=== PATIENT | female | born 1955 | race Caucasian/White ===

== ENCOUNTER 2020-07-09 18:50 | Observation (INO) | payer OTHER, SELFPAY ==
[2020-07-09] VITALS (9 sets, daily range): BP systolic 146–208; BP diastolic 77–104; PULSE 67–78; RESP 11–23; TEMP 37; O2SAT 95–99
--- NOTE | 2020-07-09 20:52 | XRR_ITS ---
PROCEDURE INFORMATION: Exam: XR Chest, 1 View Exam date and time: 07/09/2020 9:08 PM Age: 65 years old Clinical indication: Chest pain; Type not specified; Prior surgery; Surgery type: Gb TECHNIQUE: Imaging protocol: XR of the chest Views: 1 view. COMPARISON: No relevant prior studies available. FINDINGS: Lungs: Unremarkable. No consolidation. Pleural space: Unremarkable. No pleural effusion. No pneumothorax. Heart/Mediastinum: Unremarkable. No cardiomegaly. Bones/joints: Unremarkable. XR/XR chest 1V portable [id number] IMPRESSION: No acute findings.
--- NOTE | 2020-07-09 20:52 | ECG_ITS ---
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 Measurements Intervals [place] Rate: 83 P: 34 [place]: 181 QRS: -4 QRSD: 82 T: 75 QT: 364 QTc: 428 Interpretive Statements SINUS RHYTHM WITH OCCASIONAL VENTRICULAR PREMATURE COMPLEXES POSSIBLE ANTERIOR MYOCARDIAL INFARCTION [30 ms Q WAVE IN V3/V4, OR R < 0.2 mV IN V4], PROBABLY OLD INFERIOR MYOCARDIAL INFARCTION [40+ ms Q WAVE AND/OR ST/T ABNORMALITY IN II/aVF], PROBABLY OLD No previous ECG available for comparison Electronically Signed On 07-10-2020 16:38:32 UTILIZATION MANAGEMENT NURSE by Karina Quinn M.D. [id number]
[2020-07-09 20:59] LABS: Basophils # 0.1 10^3/uL (0.0-0.1); Basophils % 0.6 %; Eosinophils # 0.2 10^3/uL (0.0-0.8); Eosinophils % 2.1 %; Hematocrit 43.5 % (37.0-47.0); Hemoglobin 14.4 g/dL (11.5-15.3); Lymphocytes # 3.4 10^3/uL (0.8-4.8); Lymphocytes % 31.8 %; Mean Corpuscular HGB Conc 33.1 g/dL (30.0-36.0); Mean Corpuscular Hemoglobin 30.1 pg (28.0-34.0); Mean Platelet Volume 10.6 fL (7.4-10.4); Monocytes # 0.5 10^3/uL (0.2-0.9); Neutrophils # 6.33 10^3/uL (1.8-7.7); Neutrophils % 60.2 %; Nucleated Red Blood Cells % 0 %; Platelet Count 341 10^3/cmm (130-400); Red Blood Count 4.78 10^6/uL (4.1-5.3); Red Cell Distribution Width 12.1 % (12.1-15.1); White Blood Count 10.5 10^3/uL (4.0-10.0)
[2020-07-09 21:32] LABS: Alanine Aminotransferase 19 U/L (0-33); Albumin Level 4.4 g/dL (3.5-5.2); Alkaline Phosphatase 95 IU/L (35-105); Anion Gap 16.4 (5-19); Aspartate Amino Transferase 15 U/L (0-32); Blood Urea Nitrogen 18 mg/dL (8-23); Calcium 9.9 mg/dL (8.5-10.5); Carbon Dioxide 26 mmol/L (22-29); Chloride 99 mmol/L (98-107); Globulin 2.3 g/dL (1.3-4.6); Glomerular Filtration Rate 50.2 mL/min (90-130); Glucose 241 mg/dL (65-115); Lipase 29 U/L (13-60); Magnesium 2.2 mg/dL (1.7-2.3); Osmolality Calculated 294 mOsm/kg (285-295); Potassium 4.4 mmol/L (3.5-5.1); Sodium 137 mmol/L (136-145); Total Bilirubin 0.3 mg/dL (0.15-1.2); Total Protein 6.7 g/dL (6.6-8.7)
[2020-07-09 21:34] LABS: Troponin(5th) Baseline 20 ng/L (0-10)
[2020-07-09] MEDS: aspirin 325 mg Tablet PO (21:34)
[2020-07-09] MEDS: nitroglycerin 0.4 mg sublingual Tablet SUBLINGUAL (22:07)
--- NOTE | 2020-07-09 22:19 | ED_ITS ---
HPI - Chest Pain General: Chief Complaint: Chest Pain Stated Complaint: chest pain Time Seen by Provider: 07/09/20 21:10 Source: patient Mode of arrival: ambulatory Limitations: no limitations History of Present Illness: HPI narrative: Arpita is a very nice 65-year-old female who comes in complaining of chest pain. The pain is described more like a pressure in the center of her chest that radiates down her left arm. She has associated shortness of breath and nausea with this but denies diaphoresis, syncope or other complaint. She does have worsening with exertion but denies any other exacerbating or alleviating factors. Patient has a history of stroke but had not seen a doctor in over 8 years. The symptoms of chest discomfort have been going on intermittently since September but recently have become much worse. She establish with a new doctor recently and was diagnosed with hypertension, diabetes and hyperlipidemia. She also has a family history of heart disease. Patient was set up for an outpatient stress test on Thursday but she felt because of the increasing severity and frequency of her symptoms she should be checked out before then. Patient also complains of frequent palpitations described as a rapid pounding in her chest as well as an irregular heartbeat. Patient denies any syncope or near syncopal type symptoms. Associated symptoms: Reports dyspnea and palpitations; Deny abdominal pain, diaphoresis, fever(s), nausea, syncope or vomiting Review of Systems Const: Denies: fever(s), chills, body aches, fatigue, malaise or diaphoresis Eyes: Denies: change in vision, blurry vision, photophobia, eye discomfort, eye discharge, eye redness or yellow eyes ENMT: Denies: throat pain, odynophagia, hoarseness, swelling of lips/tongue, ear or mastoid pain, ear discharge, change in hearing or nasal discharge Card: Reports: chest pain, palpitations and irregular heart rhythm; Denies: edema, lightheadedness, syncope, pre-syncope, dyspnea on exertion or orthopnea Resp: Reports: dyspnea; Denies: productive cough, non-productive cough, wheezing, hemoptysis or chest congestion GI: Denies: abdominal pain, nausea, vomiting, hematemesis, coffee ground emesis, heartburn, diarrhea, constipation, GI cramping, hematochezia or melena : Denies: flank pain, dysuria, urinary frequency, urinary urgency or hematuria Musc: Denies: neck pain, back pain, extremity pain, extremity swelling, joint pain, joint swelling, joint redness, joint warmth or joint stiffness Skin/Breast: Denies: rash, pruritus, erythema, skin pain or skin tenderness Neuro: Denies: headache(s), numbness in extremities, weakness in extremities, sensory changes, lack of coordination, difficulty walking, dizziness, vertigo, confusion, Slurred speech present or seizure-like activity Alvaro/Lymph: Denies: easy bruising, easy bleeding, petechiae, purpura or enlarged lymph nodes All/Imm: Denies: urticaria, throat swelling, tongue swelling, facial swelling or acute wheezing PFSH ED PFSH: Medical History (Updated 07/09/20 @ 22:39 by Anali Khanna) CVA (cerebral vascular accident) DM type 2 (diabetes mellitus, type 2) Hyperlipidemia Hypertension Family History (Updated 07/09/20 @ 22:23 by Anali Khanna) Other CAD (coronary artery disease) Stroke Social History (Updated 07/09/20 @ 22:23 by Anali Khanna) Smoking and tobacco status: never smoked Alcohol intake: never Substance/Drug Use: never Physical Exam Const: COMMON NORMALS: no acute distress, patient oriented x3, no limitations and alert GENERAL APPEARANCE: cooperative HENMT: COMMON NORMALS: normocephalic, atraumatic, external ears normal, EAC's normal and Normal external nose present HEAD & SCALP: normal to inspection, normocephalic and atraumatic FACE & SINUS: normal facial exam and face symmetric NOSE: Normal external nose present and Normal nares present EXTERNAL EAR: Yes external ears normal EXTERNAL AUDITORY CANAL: EAC's normal MOUTH: Normal oral and palatal mucosa present, lip normal and tongue normal Eye: COMMON NORMALS: Equal, round and reactive pupils present and conjunctivae normal GENERAL EYE: appearance normal, both eyes and all related structures ALIGNMENT: Yes alignment normal PERIORBITAL: periorbital findings normal EYELID: eyelids normal CONJUNCTIVA: Yes conjunctivae normal SCLERA: sclerae normal PUPIL: Yes Equal, round and reactive pupils present Neck/C-Spine: COMMON NORMALS: full ROM, no lymphadenopathy, supple, no meningeal signs and no JVD GENERAL: Yes normal visual inspection and Yes trachea midline Chest: COMMONS NORMALS: normal inspection of the chest and normal palpation of entire chest wall Resp: COMMON NORMALS: normal respiratory effort, No retractions, No use of accessory muscles and clear to auscultation bilaterally EFFORT & INSPECTION: Yes able to speak in complete sentences and Yes symmetric chest movement AUSCULTATION: clear to auscultation bilaterally, no crackles, no rales, no rhonchi and no wheezes Cardio: COMMON NORMALS: no JVD, regular rate, regular rhythm, S1 normal heart sound present and S2 normal heart sound present RATE: regular rate RHYTHM: regular rhythm HEART SOUNDS: S1 normal heart sound present, S2 normal heart sound present, no click, no gallops, no murmurs and no rubs GI: COMMON NORMALS: Soft to palpation and No hepatosplenomegaly present PALPATION: Yes Soft to palpation, No Tenderness to palpation present (GI), No Guarding due to palpation present (GI), No Rigid due to palpation, Yes No hepatosplenomegaly present, No Hernia present, No Palpable mass present and No Pulsatile mass present : COMMON NORMALS: Yes no CVA tenderness BLADDER/KIDNEY EXAM: Yes no CVA tenderness EXTERNAL FEMALE EXAM: No Hernia present Back/Pelvis: COMMON NORMALS: no CVA tenderness, thoracic and lumbar spine normal to inspection, no thoracic nor lumbar tenderness and thoraco-lumbar ROM normal Extremity: COMMON NORMALS: normal to inspection, full ROM, capillary refill normal, no joint enlargement, no clubbing, cyanosis or edema and no calf tenderness Neuro: COMMON NORMALS: patient oriented x3, CN's II-XII intact bilaterally, moves all extremities, no focal motor deficits and no sensory deficits noted SENSORIUM/ORIENTATION: Yes alert MENINGEAL SIGNS: Yes no meningeal signs SPEECH: speech normal Psych: COMMON NORMALS: mental status grossly normal, Normal thought process present, cooperative, normal affect, speech normal and activity/motor behavior normal SPEECH: Yes normal speech THOUGHT PROCESS: Normal thought process present Skin: COMMON NORMALS: no rashes or lesions noted, turgor normal, no jaundice, no petechiae and no mottling GENERAL SKIN EXAM: no rashes or lesions noted and turgor normal Course Vital Signs: Vital signs: Vital Signs Temperature 98.6 F 07/09/20 18:57 Pulse Rate 72 07/09/20 22:32 Respiratory Rate 15 07/09/20 22:32 Blood Pressure 162/81 07/09/20 22:32 Pulse Oximetry 95 07/09/20 22:32 MDM - Chest Pain MDM Narrative: Medical decision making narrative: Mrs. Marion is a very nice 65-year-old female who comes in with high blood pressure and the complaint of chest pressure. Her symptoms have been going on for the past several months but worsening in severity and frequency. Differentials considerable including acute coronary syndrome, aortic dissection, pulmonary embolism, hypertensive urgency among many others. Patient has no tachycardia, hypoxia, leg pain or anything to suggest a PE. She is not scriber ripping or tearing sensation or migratory pain and with the time span of her symptoms I doubt dissection or PE. I am concerned about acute coronary syndrome. Patient's EKG is abnormal as she has a first abnormal troponin. Patient's heart score is 6. Because of all these findings and her heart score I have endorsed the case to Dr. Peña agrees to admit for further evaluation and care. Lab Data: Attestation: I reviewed the patient's lab results. Labs: Lab Results 07/09/20 07/09/20 07/09/20 Range/Units 20:44 20:44 20:44 WBC 10.5 H (4.0-10.0) 10^3/ uL RBC 4.78 (4.1-5.3) 10^6/u L Hgb 14.4 (11.5-15.3) g/dL Hct 43.5 (37.0-47.0) % MCV 91.0 (81-99) fL MCH 30.1 (28.0-34.0) pg MCHC 33.1 (30.0-36.0) g/dL RDW 12.1 (12.1-15.1) % Plt Count 341 (130-400) 10^3/c mm MPV 10.6 H (7.4-10.4) fL Neut % (Auto) 60.2 % Lymph % (Auto) 31.8 % [place] % (Auto) 5.0 % Eos % (Auto) 2.1 % Baso % (Auto) 0.6 % Neut # (Auto) 6.33 (1.8-7.7) 10^3/u L Lymph # (Auto) 3.4 (0.8-4.8) 10^3/u L [place] # (Auto) 0.5 (0.2-0.9) 10^3/u L Eos # (Auto) 0.2 (0.0-0.8) 10^3/u L Baso # (Auto) 0.1 (0.0-0.1) 10^3/u L Nucleated RBC % (a uto) 0 % Nucleated RBCs # 0.0 /100WBC Sodium 137 (136-145) mmol/L Potassium 4.4 (3.5-5.1) mmol/L Chloride 99 (98-107) mmol/L Carbon Dioxide 26 (22-29) mmol/L Anion Gap 16.4 (5-19) BUN 18 (8-23) mg/dL Creatinine 1.1 H (0.5-0.9) mg/dL GFR Calculation 50.2 L (90-130) mL/min Glucose 241 H (65-115) mg/dL Calculated Osmolal ity 294 (285-295) mOsm/k g Calcium 9.9 (8.5-10.5) mg/dL Magnesium 2.2 (1.7-2.3) mg/dL Total Bilirubin 0.3 (0.15-1.2) mg/dL AST 15 (0-32) U/L ALT 19 (0-33) U/L Alkaline Phosphata se 95 (35-105) IU/L Troponin T Baselin e 20 H (0-10) ng/L Total Protein 6.7 (6.6-8.7) g/dL Albumin 4.4 (3.5-5.2) g/dL Globulin 2.3 (1.3-4.6) g/dL Lipase 29 (13-60) U/L Imaging Data^: CXR: Attestation: I personally reviewed and interpreted this imaging study as follows: My impression: No acute cardiopulmonary findings. EKG Data^: EKG 1: Attestation: I personally reviewed and interpreted this EKG as follows: EKG interpretation date: 07/09/20 EKG interpretation time: 18:50 Interpretation: Normal sinus rhythm at 83 beats a minute, no blocks, normal intervals, possible anterior Q waves V1 through V4, Q waves inferiorly in III, aVF, nonspecific ST and T wave changes. No old for comparison EKG 2: Attestation: I personally reviewed and interpreted this EKG as follows: EKG interpretation date: 07/09/20 EKG interpretation time: 22:58 Interpretation: Normal sinus rhythm at 69 beats a minute, no blocks, normal intervals, LVH, Q waves anteriorly in V1 through V4, nonspecific ST and T wave changes. Discharge Plan Discharge Patient Disposition: Placed in Observation Clinical Impression: Chest pain Qualifiers: Chest pain type: chest pain due to myocardial ischemia Ischemic chest pain type: unstable angina pectoris Qualified Code(s): I20.0 - Unstable angina Coding Level of Care Code ED Plastics Fabrication Supervisor for Chg Fwd Exam Comprehensive
--- NOTE | 2020-07-09 22:52 | ECG_ITS ---
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 Measurements Intervals [place] Rate: 69 P: 26 OR: 177 QRS: -13 QRSD: 89 T: 70 QT: 411 QTc: 440 Interpretive Statements SINUS RHYTHM WITH OCCASIONAL VENTRICULAR PREMATURE COMPLEXES MODERATE VOLTAGE CRITERIA FOR LVH, CONSIDER NORMAL VARIANT [MEETS CRITERIA IN ONE OF: R(aVL), S(V1), R(V5), R(V5/V6)+S(V1)] POSSIBLE ANTERIOR MYOCARDIAL INFARCTION , OF INDETERMINATE AGE [30 ms Q WAVE IN V3/V4, OR R < 0.2 mV IN V4] Compared to ECG 07/09/2020 18:51:27 No significant changes Electronically Signed On 07-10-2020 16:38:52 ELECTRICAL APPLIANCE SERVICER by Karina Quinn M.D. [id number]
[2020-07-09 23:12] LABS: Troponin 5 2HR 20.43 ng/L (0-10); Troponin 5 2HR Delta 0.43 ABS# (0-10)
[2020-07-10] VITALS (12 sets, daily range): BP systolic 117–185; BP diastolic 62–93; PULSE 61–74; RESP 14–18; TEMP 36.3–36.8; O2SAT 93–98; BMI 30.9
--- NOTE | 2020-07-10 00:59 | USCV_ITS ---
Arpita Marion Age: 65 Gender: F : 1955 Exam Date: 07/10/2020 09:43 Ordering Phys: Jonh Peña MD Technologist: Kassidy Siddiqi Exam Location: [facility] [place] Indication: CHEST PAIN BP: 126 / 73 HR: 70 Rhythm: Sinus Technical Quality: Fair MEASUREMENTS (Male / Female) Normal Values 2D ECHO LV Diastolic Diameter PLAX 3.9 cm 4.2 - 5.9 / 3.9 - 5.3 cm LV Systolic Diameter PLAX 2.5 cm LV Chamber Size 3.6 cm IVS Diastolic Thickness 1.3 cm 0.6 - 1.0 / 0.6 - 0.9 cm IVS Systolic Thickness 1.5 cm LVPW Diastolic Thickness 1.7 cm 0.6 - 1.0 / 0.6 - 0.9 cm LVPW Systolic Thickness 2.1 cm RV Chamber Size 3.0 cm LVOT Diameter 2.0 cm LV Ejection Fraction 2D Teich 65.3 % LV Ejection Fraction MOD 2C 60.0 % LV Ejection Fraction 2C AL 61.1 % LA Diameter 3.5 cm LA Width 3.5 cm LA Height 3.5 cm RA Width 2.4 cm RA Height 3.1 cm Aorta at Sinotubular Diameter 2.1 cm M-MODE LV Diastolic Diameter MM 4.8 cm 4.2 - 5.9 / 3.9 - 5.3 cm LV Systolic Diameter MM 2.9 cm LV Ejection Fraction MM Teich 70.9 % IVS Diastolic Thickness MM 1.2 cm 0.6 - 1.0 / 0.6 - 0.9 cm IVS Systolic Thickness MM 1.3 cm LVPW Diastolic Thickness MM 1.0 cm 0.6 - 1.0 / 0.6 - 0.9 cm LVPW Systolic Thickness MM 1.4 cm Aortic Annulus Diameter 2.8 cm LA Ao Ratio MM 1.3 MV E Point Septal Separation 1.2 cm DOPPLER AV Peak Velocity 134.0 cm/s LVOT Peak Velocity 89.0 cm/s AV Area Cont Eq vti 2.2 cm squared AV Area Cont Eq pk 2.1 cm squared MV Area PHT 6.7 cm squared Mitral E to A Ratio 0.7 MV E' Velocity 40.0 cm/s Mitral E to MV E' Ratio 11.2 Mitral E to LV E' Lateral Ratio 11.7 Mitral E to LV E' Septal Ratio 10.8 TR Peak Velocity 144.0 cm/s TR Peak Gradient 8.3 mmHg TV Peak E Velocity 64.0 cm/s Right Atrial Pressure 3.0 mmHg Pulmonary Artery Systolic Pressu 11.3 mmHg PV Peak Velocity 96.7 cm/s RV Acceleration Time 0.2 s RV Ejection Time 0.4 s RV AcT/ET 0.4 FINDINGS Left Ventricle Normal left ventricular size, systolic function and wall thickness, with no regional wall motion abnormalities. Left ventricular ejection fraction is estimated at 65-70 %. Indeterminate diastolic function. Right Ventricle Normal right ventricular size and systolic function. Right ventricular systolic pressure 11.3 mmHg. Right Atrium Normal right atrial size. Left Atrium Left atrium not well visualized. Probably normal left atrial size Mitral Valve Thickened mitral valve. No mitral valve stenosis. No mitral valve regurgitation. Aortic Valve Probably tricuspid aortic valve. No aortic valve stenosis. No aortic valve regurgitation. Tricuspid Valve Structurally normal tricuspid valve. Pulmonic Valve Pulmonic valve not well visualized. Pericardium No pericardial effusion. Aorta Normal-sized aortic root. CONCLUSIONS 1. This is a technically difficult study. 2. Normal left ventricular size, systolic function and wall thickness, with no regional wall motion abnormalities. Left ventricular ejection fraction is estimated at 65-70 %. Indeterminate diastolic function. 3. Normal pulmonary artery pressure. 4. No significant valvular abnormality. 5. No prior similar studies to compare. Karina Quinn MD (Electronically Signed) Final Date: 10 July 2020 12:31 S
--- NOTE | 2020-07-10 01:03 | NMCV_ITS ---
NM jesus perf SPECT r/s* [id number] Arpita Marion Age: 65 Gender: F : 1955 Exam Date: 07/10/2020 06:49 Ordering Phys: Jonh Peña MD Technologist: MARLA Riddle Exam Location: [facility] Indications: CHEST PAIN STRESS TEST Please see separate stress test report in [facility] for full findings IMAGE PROTOCOL Rest/Stress 1 Lexiscan Day Radiopharmaceutical Dose (mCi) Administration Site Administered by Rest: Tc-99m 10.9 IV MARLA Siddiqui Sestamibi Stress:Tc-99m 32.9 IV MARLA Siddiqui Sestamibi Rest: 10-Jul-2020 60 Discovery 630 Stress: 10-Jul-2020 30 Discovery 630 0.4mg Lexiscan. Images obtained in supine and prone position. SPECT RESULTS Technical Quality: Excellent Raw Data Analysis: Normal Image Corrections: No attenuation or motion correction applied Summed Stress Score: 3 Summed Rest Score: 4 Summed Difference Score: 0 PERFUSION FINDINGS There is a small in size, fixed perfusion defect of the apical wall. This likely represents prior infarct or artifact. FUNCTIONAL RESULTS (calculated via Gated SPECT) Stress Image LV EF (%): 76 Stress EDV (mL):76 TID: 1.25 Stress ESV (mL):18 FUNCTIONAL FINDINGS: LV systolic function is normal with EF of 76%. Elevated transient ischemic dilation ratio 1.25. IMPRESSIONS 1. Small, fixed perfusion defect is noted in the apical wall. This likely represents prior infarct or artifact. 2. Elevated transient ischemic dilation ratio of 1.25. This could represent subendocardial ischemia/multivessel disease. Clinical correlation is needed. Jim Ruiz MD (Electronically Signed) Final Date: 10 July 2020 10:26 S
--- NOTE | 2020-07-10 01:03 | ECG_ITS ---
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 Interpretive Statements NAME OF STUDY: LEXISCAN SESTAMIBI STRESS TEST INDICATION: Chest Pain PROCEDURE: At the baseline, the blood pressure was 177/87 mmHg with a heart rate of 70 bpm. The electrocardiogram showed normal sinus rhythm with frequent PVCs, normal axis. Possible old anteroseptal infarct. Nonspecific ST-T wave changes. The Lexiscan was infused over a period of 20 seconds. A total of 0.4 milligrams of Lexiscan was infused. The stress phase was continued for a total of 5 minutes. Heart rate at the end of the stress phase was 73 bpm with a blood pressure of 145/77 mm Hg. The EKG at the peak infusion revealed sinus rhythm with no significant ST-T wave changes. Sestamibi was injected 20 seconds after the Lexiscan infusion. Blood pressure at the end of the recovery phase was 146/87 mmHg with a heart rate of 71 beats per minute. CONCLUSION: 1. No significant EKG changes with the LexiScan infusion. 2. No LexiScan induced chest pain or cardiac arrhythmia. 3. Normal blood pressure and heart rate response. 4. Sestamibi/sestamibi perfusion scan pending; see separate report. Electronically Signed On 07-10-2020 12:06:07 SHELLFISH SORTER by Karina Quinn M.D. [id number]
--- NOTE | 2020-07-10 01:10 | PM.HP ---
Providers/Chief Complaint Admitting Physician: Jonh Peña MD Chief Complaint: chest pain History of Present Illness Arpita Marion is a 65 year old female hypertension and diabetes, dyslipidemia,CVA (8 yrs back ) with no residual weakness, was admitted with chief complaint of, left-sided pressure-like chest pain, radiating to the left arm, started this morning, associated with, diaphoresis ,palpitation, nausea, dizziness. She is complaining of ongoing chest pain since September 2019, which has progressively worsened, but the chest pain she experienced today in the morning, was completely different from, her ongoing chest pain since September. Her chest pain and shortness of breath worsens with exertion. She has recently moved to the area, and has established a primary care physician, she has not been on any antihypertensive medications or antidiabetic medications in the past, she was managing her hypertension and diabetes conservatively. She was due to start on Metformin for her diabetes as per PCP recommendation for HbA1c of 8. She was due to get an outpatient stress test this Thursday. On review of system she denies any cough, fever, orthopnea, PND abdominal pain, vomiting, constipation, urinary complaints, sick contact. Upon arrival in the ER she was worked up for chest pain: EKG:normal sinus rhythm at 83 beats a minute, no blocks, normal intervals, possible anterior Q waves V1 through V4, Q waves inferiorly in III, aVF, nonspecific ST and T wave changes. No old for comparison. X-ray chest: No acute infiltrates, no pulmonary congestion. Pertinent labs: Baseline troponin: 20, 2 hours: 20.43, delta: 0.43, 6 hours: Awaited proBNP: Pending ER medications: Aspirin 325 mg p.o. 1 dose Review of Systems Const: Denies: fever(s), chills, body aches or change in appetite Card: Denies: edema or leg pain with exertion Resp: Denies: productive cough, wheezing or pain on inspiration GI: Denies: abdominal pain, nausea, vomiting, diarrhea or constipation : Denies: flank pain Musc: Denies: back pain or extremity pain Neuro: Denies: headache(s), difficulty walking or confusion Medications/Allergies Home Medications Medication Instructions Recorded Confirmed Last Taken Type No Known Home Medications 07/09/20 07/09/20 Unknown History Allergies Allergy/AdvReac Type Severity Reaction Status Date / Time Penicillins Allergy Unknown Verified 07/09/20 18:54 PFSH Acute PFSH: Medical History CVA (cerebral vascular accident) DM type 2 (diabetes mellitus, type 2) Hyperlipidemia Hypertension Family History Other CAD (coronary artery disease) Stroke Social History Smoking and tobacco status: never smoked Alcohol intake: never Substance/Drug Use: never Vitals/I&O/Wt Last Vital Signs Temp 98.6 F 07/09/20 18:57 Pulse 69 07/10/20 00:47 Resp 14 07/10/20 00:47 BP 182/93 07/10/20 00:47 Pulse Ox 96 07/10/20 00:47 Weight last 48 hrs Weight 76.657 kg Physical Exam Const: COMMON NORMALS: patient oriented x3 HENMT: COMMON NORMALS: normocephalic and atraumatic HEAD & SCALP: normocephalic and atraumatic EXTERNAL EAR: Yes external ears normal Eye: COMMON NORMALS: no scleral icterus GENERAL EYE: appearance normal, both eyes and all related structures Chest: COMMONS NORMALS: normal inspection of the chest and normal palpation of entire chest wall CHEST: Yes Symmetrical chest wall rise Resp: COMMON NORMALS: normal respiratory effort, No retractions, No use of accessory muscles and clear to auscultation bilaterally EFFORT & INSPECTION: Yes symmetric chest movement AUSCULTATION: clear to auscultation bilaterally Cardio: COMMON NORMALS: regular rate, regular rhythm, S1 normal heart sound present, S2 normal heart sound present, No gallops present (Cardio), No murmurs present (Cardio), No rub (Cardio) and Peripheral pulses 2+ throughout RATE: regular rate RHYTHM: regular rhythm HEART SOUNDS: S1 normal heart sound present and S2 normal heart sound present PERIPHERAL PULSES: Peripheral pulses 2+ throughout GI: COMMON NORMALS: Normal to inspection, nondistended, normoactive bowel sounds present, Soft to palpation, non-tender, No hepatosplenomegaly present and no masses AUSCULTATION: Yes normoactive bowel sounds PALPATION: Yes Soft to palpation and Yes No hepatosplenomegaly present RECTAL EXAM: deferred Extremity: COMMON NORMALS: no clubbing, cyanosis or edema and no pedal edema Neuro: COMMON NORMALS: patient oriented x3 Data : 07/10/20 02:45 07/10/20 02:45 A&P Assessment and plan (1) Chronic stable angina: Patient likely has chronic stable angina. EKG is failed to show any acute myocardial insult. Troponins are flat. N.p.o. 2D echo Lexiscan in the a.m. Aspirin 81 mg oral daily Plavix 75 mg oral daily Imdur 30 mg oral daily Lisinopril 2.5 mg oral daily Metoprolol tartrate 12.5 mg oral every 12 hours Atorvastatin 40 mg oral daily Telemetry monitoring. Possible cardiology consult Status: Acute (2) Coronary artery disease: Based on the risk factor (hypertension, diabetes, dyslipidemia, family history of CAD) EKG findings. Typical chest pain. Management as #1 Status: Acute (3) Hyperlipidemia: Atorvastatin 40 mg oral daily Status: Acute (4) DM type 2 (diabetes mellitus, type 2): LDSSI FSG HbA1c Diabetic Diet Status: Acute (5) Hypertension: Has not been on any blood pressure medications in past Amlodipine 5 mg oral daily,Lisinopril 2.5 mg oral daily, Metoprolol.T : 12.5 MG Q12 H Daily. Monitor B/P Status: Acute (6) CVA (cerebral vascular accident): Continue ASpirin and Plavix Status: Acute Additional A&P Information DVT prophylaxis: Lovenox 40 subcu daily CODE STATUS: Full code Disposition: Home Attestations Medical Necessity Statement*: Patient is to be in hospital for the management of chest pain, anticipated length of stay is greater than 2 midnights. 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
[2020-07-10] MEDS: amlodipine 5 mg Tablet PO ×2 (01:34→10:01)
--- NOTE | 2020-07-10 02:52 | ECG_ITS ---
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 Measurements Intervals [place] Rate: 69 P: 33 MI: 188 QRS: -12 QRSD: 82 T: 96 QT: 402 QTc: 432 Interpretive Statements SINUS RHYTHM MINIMAL VOLTAGE CRITERIA FOR LVH, CONSIDER NORMAL VARIANT [MEETS CRITERIA IN ONE OF: R(aVL), S(V1), R(V5), R(V5/V6)+S(V1)] POSSIBLE ANTERIOR MYOCARDIAL INFARCTION , OF INDETERMINATE AGE [30 ms Q WAVE IN V3/V4, OR R < 0.2 mV IN V4] INFERIOR MYOCARDIAL INFARCTION , PROBABLY OLD [40+ ms Q WAVE AND/OR ST/T ABNORMALITY IN II/aVF] Compared to ECG 07/09/2020 18:51:27 Ventricular premature complex(es) no longer present Myocardial infarct finding still present Electronically Signed On 07-10-2020 16:39:03 ONLINE MERCHANDISING MANAGER by Karina Quinn M.D. [email or web address] [id number] pavel
[2020-07-10 03:19] LABS: Basophils # 0.1 10^3/uL (0.0-0.1); Basophils % 0.6 %; Eosinophils # 0.3 10^3/uL (0.0-0.8); Eosinophils % 2.9 %; Hemoglobin 13.3 g/dL (11.5-15.3); Lymphocytes # 3.7 10^3/uL (0.8-4.8); Lymphocytes % 42.5 %; Mean Corpuscular HGB Conc 32.4 g/dL (30.0-36.0); Mean Corpuscular Hemoglobin 29.4 pg (28.0-34.0); Mean Corpuscular Volume 90.5 fL (81-99); Mean Platelet Volume 10.8 fL (7.4-10.4); Monocytes # 0.5 10^3/uL (0.2-0.9); Monocytes % 5.7 %; Neutrophils # 4.21 10^3/uL (1.8-7.7); Neutrophils % 48.2 %; Nucleated Red Blood Cells % 0 %; Platelet Count 317 10^3/cmm (130-400); Red Blood Count 4.53 10^6/uL (4.1-5.3); White Blood Count 8.7 10^3/uL (4.0-10.0)
[2020-07-10 03:23] LABS: Partial Thromboplastin Time 26.4 SECONDS (23.9-36.7)
[2020-07-10] MEDS: hyDRALAzine 25 mg Tablet PO (03:23)
[2020-07-10] MEDS: enoxaparin 40 mg/0.4 mL Syringe SUBCUT (03:23)
[2020-07-10 03:28] LABS: Estmated Average Glucose 209; Hemoglobin A1C 8.9 % (4.0-6.0)
[2020-07-10 03:30] LABS: Troponin 5 6HR 22.35 ng/L (0-10); Troponin 5 6HR Delta 2.35 ng/L (0-12)
[2020-07-10 03:31] LABS: Alanine Aminotransferase 17 U/L (0-33); Albumin Level 3.9 g/dL (3.5-5.2); Alkaline Phosphatase 83 IU/L (35-105); Anion Gap 16.1 (5-19); Aspartate Amino Transferase 12 U/L (0-32); Blood Urea Nitrogen 15 mg/dL (8-23); Calcium 9.5 mg/dL (8.5-10.5); Carbon Dioxide 28 mmol/L (22-29); Chloride 101 mmol/L (98-107); Globulin 2.6 g/dL (1.3-4.6); Glomerular Filtration Rate 45.4 mL/min (90-130); Glucose 216 mg/dL (65-115); Magnesium 2.1 mg/dL (1.7-2.3); Osmolality Calculated 299 mOsm/kg (285-295); Potassium 4.1 mmol/L (3.5-5.1); Sodium 141 mmol/L (136-145); Total Bilirubin 0.4 mg/dL (0.15-1.2); Total Protein 6.5 g/dL (6.6-8.7)
[2020-07-10 03:37] LABS: Phosphorus 3.9 mg/dL (2.5-4.5); Thyroid Stimulating Hormone 2.88 uIU/mL (0.27-4.20)
[2020-07-10 03:38] LABS: Chol HDL Ratio 4.71 mg/dL (0.0-4.40); Cholesterol 278 mg/dL (0-200); HDL Cholesterol 59 mg/dL (60-100); LDL Cholesterol Calculated 198 mg/dL (50-129); LDL HDL Ratio 3.36 RATIO (0.00-3.22); NT Pro B Type Natriuretic Pept 283 pg/mL (0-125); Triglycerides 105 mg/dL (0-150)
[2020-07-10 03:44] LABS: INR 0.91 (0.8-1.2)
[2020-07-10 06:38] LABS: Glucose Point of Care 193 mg/dL (70-110)
[2020-07-10 06:38] LABS: Urine Appearance Clear (CLEAR); Urine Color Yellow (Yellow)
[2020-07-10 06:39] LABS: Add Urine Culture? Yes; Add Urine Microscopic? YES; Bacteria Urine 1+ /hpf; Bilirubin Urine Neg (Negative); Blood Urine Neg (Negative); Glucose Urine UA Norm (Normal); Ketones Urine Negative (Negative); Leukocyte Esterase Urine Trace (Negative); Nitrate Urine Negative (Negative); Protein Urine Trace (Negative); RBC Urine 0-4 /hpf (0-2); Specific Gravity, Urine 1.005 (1.005-1.030); Urobilinogen Urine Norm (Negative)
[2020-07-10] MEDS: regadenoson 0.4 Mg/5 ml Syringe IVP (08:21)
--- NOTE | 2020-07-10 09:57 | PC.CHAP ---
Pastoral Care Encounter/Spiritual Assessment Type of Contact [] Declined inbound sales consultant visit [] Patient/Family/Request visit [] Outpatient visit [] Follow-up visit [] Physician referral [] Code/Alert [] Routine visit [] Staff referral [] Actively dying [] Patient sleeping [] Family support [] [x] Out of room [] Palliative care [] [] Receiving care in room [] Pre-surgical visit [] Trauma [] Long length of stay [] ICU visit [] Other: Relational/Emotional Strength [] Patient feels connected with others/family/visitors/staff [] Distress [] Loneliness/isolation [] Abandonment Spirituality of Patient [] Person of Chery [] Attends Restorationist of their Chery [] Believes in Prayer [] Reads Bible or Hindu materials [] There are Spiritual issues to be addressed Outside Contractor Sales Interventions [] Prayer [] Active listening [] Non-anxious presence [] Spiritual/emotional support [] Crisis/trauma care [] Spiritual counseling [] Bereavement support [] Provided bereavement packet [] Provided Bible/devotional materials [] Provided toy/stuffed animal, coloring book to patient or family member [] Provided Communion [] Anointing/[place] [] Salvation [] Completed spiritual assessment [] Other: Impact on Illness or Injury [] Angry [] Fearful [] Anxious [] Often cries [] Exhaustion [] Unable to work [] Unable to attend lutheran [] Unable to walk/stand [] Unable to read [] Unable to drive [] Unable to eat/drink [] Unable to sleep [] Unable to be with family [] Patient intubated [] Other: Summary Time spent with patient
[2020-07-10] MEDS: clopidogrel 75 mg Tablet PO (10:01)
[2020-07-10] MEDS: metoprolol tartrate 25 mg Tablet 12.5 MG PO (10:02)
[2020-07-10] MEDS: aspirin 81 mg EC Tablet PO (10:02)
[2020-07-10] MEDS: lisinopril 2.5 mg Tablet PO (10:02)
[2020-07-10] MEDS: isosorbide mononitrate ER 30 mg Tablet PO (10:02)
[2020-07-10] MEDS: famotidine 20 mg Tablet PO (10:02)
[2020-07-10 11:00] LABS: Glucose Point of Care 211 mg/dL (70-110)
--- NOTE | 2020-07-10 12:31 | P.CONIM_ITS ---
Providers/Reason For Consult Consulting Physican/Specialty*: Dr. Quinn, cardiology Reason for Consult*: Chest pain Attending Physician: Deion Ordonez History of Present Illness History of Present Illness Arpita Marion is a 65 year old female with past medical history of hypertension and diabetes that was diet controlled, dyslipidemia and history of CVA about 8 years back with no residual weakness presented with chief complaint of chest discomfort. She has moved to the area from [place] about 3 weeks back. She used to stay in [place] with her and lost her last year to [facility]. She has not seen any physician for last several years until recently. She has been having chest discomfort that ranges in intensity and quality on and off since September. Her pains are described as stabbing or aching or cramp-like in nature. They tend to happen sometimes on her left chest or right chest and sometimes retrosternal in location. She has slipped back on lifestyle management of her hypertension and diabetes since she lost her . With the above described symptoms she recently saw her primary care physician and was subsequently set up for a stress test this Thursday. However yesterday morning patient started having chest pain described as elephant sitting on her chest that started about 7 in the morning and lasted throughout the day. Pain rated as 8-9 over 10 in intensity without any significant radiation or associated symptoms. As per patient her blood pressure at primary care physician's office was 120/80. She also describes intermittent episodes of palpitations and fluttering described as skipped beats. She does not have a blood pressure monitor at home but has noticed that her heart rate tends to fluctuate ranging from to low to high as per patient on pulse count. EKG on arrival showed sinus rhythm with occasional PVCs and possible old anterior PA. Possible old inferior PA Blood pressure on arrival to the ER was 204/86 mmHg Baseline troponin T of 20 that increased in 2 hours to 20.4 and at 6 hours 22.3. NT proBNP of 283. Lipid panel with total cholesterol 278, calculated LDL 198, HDL 59 and triglyceride 105. TSH 2.88. She underwent echocardiogram and nuclear stress test this morning. She continued to have chest discomfort and hence I have been asked to evaluate the patient. At the time of evaluation patient states her pain is reproducible on right lower chest and 5/10 in intensity. She also complains of lower extremity swelling that has improved since being in the hospital. Denies any orthopnea or paroxysmal nocturnal dyspnea Review of Systems General: Reports: 10 or more systems reviewed and unremarkable except in HPI and below Const: Denies: fever(s), chills, body aches or change in appetite Eyes: Reports: change in vision Card: Denies: edema or leg pain with exertion Resp: Denies: productive cough, wheezing or pain on inspiration GI: Denies: abdominal pain, nausea, vomiting, diarrhea or constipation : Denies: flank pain Musc: Reports: extremity swelling; Denies: back pain or extremity pain Skin/Breast: Denies: rash Neuro: Denies: headache(s), difficulty walking or confusion Psych: Reports: anxiety Endo: Denies: tired all the time Alvaro/Lymph: Denies: petechiae or purpura Meds/Allergies Home Medications and Allergies Home Medications Medication Instructions Recorded Confirmed Last Taken Type amlodipine 5 mg PO DAILY #30 tab 07/10/20 Unknown Rx aspirin 81 mg PO DAILY #30 tab 07/10/20 Unknown Rx atorvastatin 40 mg PO BEDTIME #30 tab 07/10/20 Unknown Rx famotidine 20 mg PO BID #120 tab 07/10/20 Unknown Rx lisinopril 2.5 mg PO BID #60 tab 07/10/20 Unknown Rx metoprolol tartrate 12.5 mg PO BID #60 tab 07/10/20 Unknown Rx nitroglycerin 0.4 mg SUBLINGUAL Q5M PRN #20 tab 07/10/20 Unknown Rx Allergies Allergy/AdvReac Type Severity Reaction Status Date / Time Penicillins Allergy Unknown Verified 07/09/20 18:54 Current Medications Current Medications Generic Name Dose Route Start Last Admin Trade Name Freq PRN Reason Stop Dose Admin Amlodipine Besylate 5 mg 07/10/20 01:00 07/10/20 10:01 Amlodipine 5 Mg Tablet PO 5 mg DAILY TAL Administration Aspirin 81 mg 07/10/20 09:00 07/10/20 10:02 Aspirin 81 Mg Ec Tablet PO 81 mg DAILY TAL Administration Clopidogrel Bisulfate 75 mg 07/10/20 09:00 07/10/20 10:01 Clopidogrel 75 Mg Tablet PO 75 mg DAILY TAL Administration Enoxaparin Sodium 40 mg 07/10/20 02:00 07/10/20 03:23 Enoxaparin 40 Mg/0.4 Ml Syringe SUBCUT 40 mg Q24H TAL Administration Famotidine 20 mg 07/10/20 09:00 07/10/20 10:02 Famotidine 20 Mg Tablet PO 20 mg BID TAL Administration Insulin Aspart 0 unit 07/10/20 08:00 07/10/20 11:17 Insulin Aspart 100 Unit/1 Ml SUBCUT 4 unit WM&BEDTIME TAL Administration Protocol Isosorbide Mononitrate 30 mg 07/10/20 09:00 07/10/20 10:02 Isosorbide Mononitrate Er 30 Mg Tablet PO 30 mg DAILY TAL Administration Lisinopril 2.5 mg 07/10/20 09:00 07/10/20 10:02 Lisinopril 2.5 Mg Tablet PO 2.5 mg BID TAL Administration Metoprolol Tartrate 12.5 mg 07/10/20 09:00 07/10/20 10:02 Metoprolol Tartrate 25 Mg Tablet PO 12.5 mg BID TAL Administration Nitroglycerin 0.4 mg 07/09/20 21:16 07/09/20 22:07 Nitroglycerin 0.4 Mg Sublingual Tablet SUBLINGUAL 0.4 mg Q5M PRN Administration CHEST PAIN PFSH Acute PFSH: Medical History CVA (cerebral vascular accident) DM type 2 (diabetes mellitus, type 2) Hyperlipidemia Hypertension Family History Other CAD (coronary artery disease) Stroke Social History Smoking and tobacco status: never smoked Alcohol intake: never Vitals/I&O/Wt Last Vital Signs Temp 97.4 F L 07/10/20 11:48 Pulse 72 07/10/20 11:48 Resp 18 07/10/20 11:48 BP 117/62 07/10/20 11:48 Pulse Ox 93 07/10/20 11:48 07/09/20 07/10/20 07/10/20 22:59 06:59 14:59 Output Total 450 / 450 Balance -450 / -450 Weight last 48 hrs Weight 169 lb Physical Exam Const: COMMON NORMALS: no acute distress, patient oriented x3 and alert GENERAL APPEARANCE: cooperative, comfortable, well kempt and well hydrated HENMT: COMMON NORMALS: normocephalic, atraumatic, hearing grossly normal bilaterally, external ears normal and Normal external nose present HEAD & SCALP: normocephalic and atraumatic FACE & SINUS: normal facial exam NOSE: Normal external nose present EXTERNAL EAR: Yes external ears normal Eye: COMMON NORMALS: Equal, round and reactive pupils present, EOMs intact bilaterally, conjunctivae normal and no scleral icterus GENERAL EYE: appearance normal, both eyes and all related structures ALIGNMENT: Yes alignment normal PERIORBITAL: periorbital findings normal EYELID: eyelids normal CONJUNCTIVA: Yes conjunctivae normal SCLERA: sclerae normal PUPIL: Yes Equal, round and reactive pupils present Neck/C-Spine: COMMON NORMALS: no lymphadenopathy, supple, no meningeal signs, no JVD and Thyroid normal GENERAL: Yes normal visual inspection, Yes trachea midline and No Mass present (neck) THYROID: Thyroid normal CAROTIDS: Yes normal carotid upstroke CERVICAL SPINE: Yes cervical ROM normal Lymph: LYMPHATIC: no lymphadenopathy noted Chest: COMMONS NORMALS: normal inspection of the chest and normal palpation of entire chest wall CHEST: Yes Symmetrical chest wall rise, No mass, No tenderness, No Surgical scars present (Chest) and No rash BREAST/AXILLA INSPECTION: Yes normal inspection of the axillae Resp: COMMON NORMALS: clear to auscultation bilaterally EFFORT & INSPECTION: Yes able to speak in complete sentences and No respiratory distress AUSCULTATION: clear to auscultation bilaterally, no crackles, no rales, no rhonchi, no wheezes and vesicular breath sounds Cardio: COMMON NORMALS: no JVD, regular rate, regular rhythm, S1 normal heart sound present, S2 normal heart sound present and Peripheral pulses 2+ throughout PALPATION: normal PMI RATE: regular rate RHYTHM: regular rhythm HEART SOUNDS: S1 normal heart sound present, S2 normal heart sound present, no gallops and no murmurs BRUITS: no carotid bruits PERIPHERAL PULSES: Peripheral pulses 2+ throughout, radial pulses present, femoral pulses present, posterior tibial pulses present and dorsalis pedis present GI: COMMON NORMALS: Soft to palpation and No hepatosplenomegaly present AUSCULTATION: Yes normoactive bowel sounds PALPATION: Yes Soft to palpation, No Tenderness to palpation present (GI), No Guarding due to palpation present (GI), No Rigid due to palpation, Yes No hepatosplenomegaly present, No Pulsatile mass present and No Ascites present PERCUSSION: tympanic to percussion Extremity: GENERAL: No calf tenderness, No clubbing, No cyanosis, Yes edema and No pallor Neuro: COMMON NORMALS: patient oriented x3, CN's II-XII intact bilaterally, no focal motor deficits, no sensory deficits noted and gait normal SENSORIUM/ORIENTATION: Yes alert MENINGEAL SIGNS: Yes no meningeal signs Psych: COMMON NORMALS: Normal thought process present and speech normal APPEARANCE: Yes well kempt SPEECH: Yes normal speech MOOD & AFFECT: Yes euthymic mood THOUGHT PROCESS: Normal thought process present THOUGHT CONTENT: Yes Normal thought content present Skin: HAIR: normal NAILS: normal and no clubbing Data Imaging^: Echo: I personally reviewed and interpreted this imaging study as follows: My impression: CONCLUSIONS 1. This is a technically difficult study. 2. Normal left ventricular size, systolic function and wall thickness, with no regional wall motion abnormalities. Left ventricular ejection fraction is estimated at 65-70 %. Indeterminate diastolic function. 3. Normal pulmonary artery pressure. 4. No significant valvular abnormality. 5. No prior similar studies to compare. Other Data: Attestation for Other Data: I personally reviewed and interpreted the following: Other data: Chest x-ray with no acute findings Lexiscan sestamibi myocardial perfusion imaging Summed Stress Score: 3 Summed Rest Score: 4 Summed Difference Score: 0 PERFUSION FINDINGS There is a small in size, fixed perfusion defect of the apical wall. This likely represents prior infarct or artifact. FUNCTIONAL RESULTS (calculated via Gated SPECT) Stress Image LV EF (%): 76 Stress EDV (mL):76 TID: 1.25 Stress ESV (mL):18 FUNCTIONAL FINDINGS: LV systolic function is normal with EF of 76%. Elevated transient ischemic dilation ratio 1.25. IMPRESSIONS 1. Small, fixed perfusion defect is noted in the apical wall. This likely represents prior infarct or artifact. 2. Elevated transient ischemic dilation ratio of 1.25. This could represent subendocardial ischemia/multivessel disease. Clinical correlation is needed. A&P Assessment and plan (1) Chest pain: Her chest pain I believe is multifactorial (in setting of PVCs, uncontrolled hypertension, anxiety and probably some component of musculoskeletal) She has had frequent PVCs on EKGs and during stress test. Fixed apical defect that may represent old myocardial infarction or attenuation artifact with mildly elevated transient ischemic dilation index of 1.25. -Blood pressure markedly elevated on admission and currently on multiple antihypertensives. -she definitely seems to have a component of anxiety playing a role here too. -I would recommend optimizing her medications to control hypertension diabetes and hyperlipidemia. -Recommend doing 48 to 72-hour Holter monitor on discharge to assess PVC burden. -I had a long discussion with the patient and plan is to keep a blood pressure and heart rate log until her follow-up visit with me in 2 weeks. -Continue aspirin, statin, metoprolol, lisinopril and sublingual nitroglycerin as needed on discharge Status: Acute Qualifiers: Chest pain type: chest pain due to myocardial ischemia Ischemic chest pain type: unstable angina pectoris Qualified Code(s): I20.0 - Unstable angina (2) Hypertension: Status: Acute Qualifiers: Hypertension type: essential hypertension Qualified Code(s): I10 - Essential (primary) hypertension (3) Hyperlipidemia: Status: Acute Qualifiers: Hyperlipidemia type: mixed hyperlipidemia Qualified Code(s): E78.2 - Mixed hyperlipidemia (4) DM type 2 (diabetes mellitus, type 2): HbA1c 8.9 Status: Acute Qualifiers: 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 Symptomatic PVCs Anxiety Thank you for allowing me to participate in patient's care. Please feel free to call with questions or concerns. 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 Marty Cash Patient Type New History Comprehensive Exam Comprehensive Medical Decision Making High Complexity Diagnoses Chest pain I20.0 Chest pain type: chest pain due to myocardial ischemia Ischemic chest pain type: unstable angina pectoris Hypertension I10 Hypertension type: essential hypertension Hyperlipidemia E78.2 Hyperlipidemia type: mixed hyperlipidemia DM type 2 (diabetes mellitus, type 2) E11.9 Diabetes mellitus parts counterman insulin use: without shelter use Diabetes mellitus complication status: without complication CVA (cerebral vascular accident) I63.9 CVA mechanism: unspecified Time Spent (min) 45
--- NOTE | 2020-07-10 14:01 | USCV_ITS ---
SanamArpita Age: 65 Gender: F : 1955 Exam Date: 07/10/2020 14:47 Ordering Phys: Deion Ordonez MD Technologist: Ilir Braun [place] [facility] [place] LT LEG PAIN AND SWELLING HISTORY: Lower extremity swelling. PROCEDURES: Venous duplex imaging was performed in only the left lower extremity. The following venous structures were evaluated: common femoral vein, profunda vein, proximal portion of the greater saphenous vein, superficial femoral vein, and the popliteal vein. In addition, the posterior tibial and peroneal trunk were evaluated. On the left side, the common femoral, superficial femoral, profunda femoral, popliteal, posterior tibial, greater saphenous veins, and the peroneal trunk were identified and interrogated in the standard fashion. These veins were found to be easily compressible with spontaneous blood flow. No evidence of insufficiency or thrombus noted. FINDINGS: Normal 2-D Doppler and augmentation and compressibility throughout the lower extremity venous structures. Additional imaging through the proximal calf veins also reveals no thrombus. Limited evaluation of the greater saphenous vein is patent with no thrombus.. CONCLUSIONS No evidence of left lower extremity DVT. Dwaine Koehler MD (Electronically Signed) Final Date: 10 July 2020 16:33 S
--- NOTE | 2020-07-10 14:03 | PM.DCS ---
Discharge Providers Date of Admission: 07/09/20 22:34 Date of Discharge: July 10, 2020 Attending Provider at Admission: Jonh Peña MD Attending Provider at Discharge: Deion Ordonez Diagnoses at Discharge Discharge Diagnosis (1) Chest pain: Status: Acute Qualifiers: Chest pain type: chest pain due to myocardial ischemia Ischemic chest pain type: unstable angina pectoris Qualified Code(s): I20.0 - Unstable angina (2) Hypertension: Status: Acute (3) DM type 2 (diabetes mellitus, type 2): Status: Acute (4) Hyperlipidemia: Status: Acute (5) CVA (cerebral vascular accident): Status: Acute Reason for Visit Reason for Visit: chest pain Hospital Course Hospital Course Very pleasant 65-year-old lady with recurrent episodes of chest pain since about September, was scheduled for outpatient stress test which was supposed to happen this Thursday, however, came in due to recurrence of chest pain which has persisted. She was assessed for acute MD, with finding of minimally elevated troponin around 20, without suggestion of acute MD on EKG. echocardiogram was obtained, with finding of normal ejection fraction, normal pulmonary artery pressure, no significant valvular abnormalities. LLE imaged w duplex due to swelling, with normal US. Suspicion for vte low. Stress testing was performed with finding of small fixed perfusion defect noted in apical wall, possibly prior infarct versus artifact. Noted elevated 3 times daily ratio of 1.25. Due to some persistent symptoms of chest pressure she was assessed by cardiology and cleared for discharge with treatment for CAD, chronic stable angina and requested to follow-up in office. She notes palpitations intermittently. Sinus rhythm noted on the monitor with rates in the 60s. 72-hour Holter monitor requested per cardiology recommendations. Consider also additional assessment for esophageal dysmotility if symptoms persist. She has some relation to food as well with some of the episodes, although not consistently. For now started on trial of famotidine, amlodipine. Physical Exam Const: COMMON NORMALS: no acute distress, patient oriented x3 and alert GENERAL APPEARANCE: cooperative ORIENTATION/CONSCIOUSNESS: Yes awake HENMT: COMMON NORMALS: oropharynx normal Neck/C-Spine: COMMON NORMALS: no JVD Resp: COMMON NORMALS: normal respiratory effort and clear to auscultation bilaterally AUSCULTATION: clear to auscultation bilaterally Cardio: COMMON NORMALS: no JVD, regular rhythm, S1 normal heart sound present, S2 normal heart sound present and No murmurs present (Cardio) RHYTHM: regular rhythm HEART SOUNDS: S1 normal heart sound present and S2 normal heart sound present GI: COMMON NORMALS: Normal to inspection, nondistended, normoactive bowel sounds present, Soft to palpation and non-tender PALPATION: Yes Soft to palpation Extremity: COMMON NORMALS: no joint enlargement and no pedal edema Neuro: COMMON NORMALS: patient oriented x3 and moves all extremities SENSORIUM/ORIENTATION: Yes alert Skin: COMMON NORMALS: no rashes or lesions noted GENERAL SKIN EXAM: no rashes or lesions noted Discharge Data Data Completed and Pending: Completed Studies During Hospitalization Category Date Time Status Sestamibi Stress Test Request Routi ne Exams 07/10/20 01:03 Completed XR chest 1V ganga ble [id number] Stat Exams 07/09/20 20:52 Completed NM jesus perf SPECT r/s* 20700 Routin e Nuc Med 07/10/20 01:03 Completed CV echo complete* [id number] Routine Ultrasound 07/10/20 00:59 Completed Pending at discharge Category Date Time Status Comprehensive Met abolic Panel AM LA BS Lab 07/11/20 04:00 Ordered Comprehensive Met abolic Panel AM LA BS Lab 07/12/20 04:00 Ordered Hemoglobin A1C AM LABS Lab 07/11/20 04:00 Ordered Lipid Panel AM LA BS Lab 07/11/20 04:00 Ordered Magnesium AM LABS Lab 07/11/20 04:00 Ordered Partial Thrombopl astin Time AM LABS Lab 07/11/20 04:00 Ordered Phosphorus AM LAB S Lab 07/11/20 04:00 Ordered Prothrombin Time INR AM LABS Lab 07/11/20 04:00 Ordered Thyroid Stimulati ng Hormone AM LABS Lab 07/11/20 04:00 Ordered Urine Culture Rou shazia Lab 07/10/20 06:05 [place] [id number] Routin e Ultrasound 07/10/20 14:01 Ordered Labs from last 24 hours 07/10/20 07/10/20 07/10/20 10:54 06:20 06:05 WBC RBC Hgb Hct MCV MCH MCHC RDW Plt Count MPV Neut % (Auto) Lymph % (Auto) [place] % (Auto) Eos % (Auto) Baso % (Auto) Neut # (Auto) Lymph # (Auto) [place] # (Auto) Eos # (Auto) Baso # (Auto) Nucleated RBC % (a uto) Nucleated RBCs # PT INR APTT Sodium Potassium Chloride Carbon Dioxide Anion Gap BUN Creatinine GFR Calculation Glucose POC Glucose 211 193 Estimat Average Gl ucose Hemoglobin A1c Calculated Osmolal ity Calcium Phosphorus Magnesium Total Bilirubin AST ALT Alkaline Phosphata se Troponin T Baselin e Troponin T 120 Min [place] Troponin T Troponin T Hi Sens 6Hr Troponin T Hi Sens 6Hr [place] NT-Pro-B Natriuret Pep Total Protein Albumin Globulin Triglycerides Cholesterol LDL Cholesterol, C alc HDL Cholesterol LDL/HDL Ratio Cholesterol/HDL Ra hailee Lipase TSH Urine Color Yellow Urine Appearance Clear Urine pH 7.0 Ur Specific Gravit y 1.005 Urine Protein Trace H Urine Glucose (UA) Norm Urine Ketones Negative Urine Blood Neg Urine Nitrate Negative Urine Bilirubin Neg Urine Urobilinogen Norm Ur Leukocyte Brittanie ase Trace H Urine RBC 0-4 H Urine WBC 5-10 H Ur Squamous Epith Cells None Amorphous Sediment Not Reportable Urine Bacteria 1+ H 07/10/20 07/10/20 07/10/20 02:45 02:45 02:45 WBC RBC Hgb Hct MCV MCH MCHC RDW Plt Count MPV Neut % (Auto) Lymph % (Auto) [place] % (Auto) Eos % (Auto) Baso % (Auto) Neut # (Auto) Lymph # (Auto) [place] # (Auto) Eos # (Auto) Baso # (Auto) Nucleated RBC % (a uto) Nucleated RBCs # PT 12.50 INR 0.91 APTT Sodium Potassium Chloride Carbon Dioxide Anion Gap BUN Creatinine GFR Calculation Glucose POC Glucose Estimat Average Gl ucose Hemoglobin A1c Calculated Osmolal ity Calcium Phosphorus 3.9 Magnesium Total Bilirubin AST ALT Alkaline Phosphata se Troponin T Baselin e Troponin T 120 Min [place] Troponin T Troponin T Hi Sens 6Hr Troponin T Hi Sens 6Hr [place] NT-Pro-B Natriuret Pep 283 H Total Protein Albumin Globulin Triglycerides 105 Cholesterol 278 H LDL Cholesterol, C alc 198 H HDL Cholesterol 59 L LDL/HDL Ratio 3.36 H Cholesterol/HDL Ra hailee 4.71 H Lipase TSH 2.88 Urine Color Urine Appearance Urine pH Ur Specific Gravit y Urine Protein Urine Glucose (UA) Urine Ketones Urine Blood Urine Nitrate Urine Bilirubin Urine Urobilinogen Ur Leukocyte Brittanie ase Urine RBC Urine WBC Ur Squamous Epith Cells Amorphous Sediment Urine Bacteria 07/10/20 07/10/20 07/10/20 02:45 02:45 02:45 WBC RBC Hgb Hct MCV MCH MCHC RDW Plt Count MPV Neut % (Auto) Lymph % (Auto) [place] % (Auto) Eos % (Auto) Baso % (Auto) Neut # (Auto) Lymph # (Auto) [place] # (Auto) Eos # (Auto) Baso # (Auto) Nucleated RBC % (a uto) Nucleated RBCs # PT INR APTT 26.4 Sodium 141 Potassium 4.1 Chloride 101 Carbon Dioxide 28 Anion Gap 16.1 BUN 15 Creatinine 1.2 H GFR Calculation 45.4 L Glucose 216 H POC Glucose Estimat Average Gl ucose 209 Hemoglobin A1c 8.9 H Calculated Osmolal ity 299 H Calcium 9.5 Phosphorus Magnesium 2.1 Total Bilirubin 0.4 AST 12 ALT 17 Alkaline Phosphata se 83 Troponin T Baselin e Troponin T 120 Min [place] Troponin T Troponin T Hi Sens 6Hr Troponin T Hi Sens 6Hr [place] NT-Pro-B Natriuret Pep Total Protein 6.5 L Albumin 3.9 Globulin 2.6 Triglycerides Cholesterol LDL Cholesterol, C alc HDL Cholesterol LDL/HDL Ratio Cholesterol/HDL Ra hailee Lipase TSH Urine Color Urine Appearance Urine pH Ur Specific Gravit y Urine Protein Urine Glucose (UA) Urine Ketones Urine Blood Urine Nitrate Urine Bilirubin Urine Urobilinogen Ur Leukocyte Brittanie ase Urine RBC Urine WBC Ur Squamous Epith Cells Amorphous Sediment Urine Bacteria 07/10/20 07/10/20 07/09/20 02:45 02:45 22:51 WBC 8.7 RBC 4.53 Hgb 13.3 Hct 41.0 MCV 90.5 MCH 29.4 MCHC 32.4 RDW 12.0 L Plt Count 317 MPV 10.8 H Neut % (Auto) 48.2 Lymph % (Auto) 42.5 [place] % (Auto) 5.7 Eos % (Auto) 2.9 Baso % (Auto) 0.6 Neut # (Auto) 4.21 Lymph # (Auto) 3.7 [place] # (Auto) 0.5 Eos # (Auto) 0.3 Baso # (Auto) 0.1 Nucleated RBC % (a uto) 0 Nucleated RBCs # 0.0 PT INR APTT Sodium Potassium Chloride Carbon Dioxide Anion Gap BUN Creatinine GFR Calculation Glucose POC Glucose Estimat Average Gl ucose Hemoglobin A1c Calculated Osmolal ity Calcium Phosphorus Magnesium Total Bilirubin AST ALT Alkaline Phosphata se Troponin T Baselin e Troponin T 120 Min [place] 20.43 H Delta Troponin T 0.43 Troponin T Hi Sens 6Hr 22.35 H Troponin T Hi Sens 6Hr [place] 2.35 NT-Pro-B Natriuret Pep Total Protein Albumin Globulin Triglycerides Cholesterol LDL Cholesterol, C alc HDL Cholesterol LDL/HDL Ratio Cholesterol/HDL Ra hailee Lipase TSH Urine Color Urine Appearance Urine pH Ur Specific Gravit y Urine Protein Urine Glucose (UA) Urine Ketones Urine Blood Urine Nitrate Urine Bilirubin Urine Urobilinogen Ur Leukocyte Brittanie ase Urine RBC Urine WBC Ur Squamous Epith Cells Amorphous Sediment Urine Bacteria 07/09/20 07/09/20 07/09/20 20:44 20:44 20:44 WBC 10.5 H RBC 4.78 Hgb 14.4 Hct 43.5 MCV 91.0 MCH 30.1 MCHC 33.1 RDW 12.1 Plt Count 341 MPV 10.6 H Neut % (Auto) 60.2 Lymph % (Auto) 31.8 [place] % (Auto) 5.0 Eos % (Auto) 2.1 Baso % (Auto) 0.6 Neut # (Auto) 6.33 Lymph # (Auto) 3.4 [place] # (Auto) 0.5 Eos # (Auto) 0.2 Baso # (Auto) 0.1 Nucleated RBC % (a uto) 0 Nucleated RBCs # 0.0 PT INR APTT Sodium 137 Potassium 4.4 Chloride 99 Carbon Dioxide 26 Anion Gap 16.4 BUN 18 Creatinine 1.1 H GFR Calculation 50.2 L Glucose 241 H POC Glucose Estimat Average Gl ucose Hemoglobin A1c Calculated Osmolal ity 294 Calcium 9.9 Phosphorus Magnesium 2.2 Total Bilirubin 0.3 AST 15 ALT 19 Alkaline Phosphata se 95 Troponin T Baselin e 20 H Troponin T 120 Min [place] Troponin T Troponin T Hi Sens 6Hr Troponin T Hi Sens 6Hr [place] NT-Pro-B Natriuret Pep Total Protein 6.7 Albumin 4.4 Globulin 2.3 Triglycerides Cholesterol LDL Cholesterol, C alc HDL Cholesterol LDL/HDL Ratio Cholesterol/HDL Ra hailee Lipase 29 TSH Urine Color Urine Appearance Urine pH Ur Specific Gravit y Urine Protein Urine Glucose (UA) Urine Ketones Urine Blood Urine Nitrate Urine Bilirubin Urine Urobilinogen Ur Leukocyte Brittanie ase Urine RBC Urine WBC Ur Squamous Epith Cells Amorphous Sediment Urine Bacteria Vitals: Last Vital Signs Temp 97.4 F L 07/10/20 14:00 Pulse 72 07/10/20 14:00 Resp 18 07/10/20 14:00 BP 117/62 07/10/20 14:00 Pulse Ox 93 07/10/20 14:00 Discharge Plan Discharge Patient Disposition: Home Condition: Stable Prescriptions: New atorvastatin 40 mg Tablet 40 mg PO BEDTIME Qty: 30 RF: 0 aspirin 81 mg Tablet,Delayed Release (Dr/Ec) 81 mg PO DAILY Qty: 30 RF: 0 famotidine 20 mg Tablet 20 mg PO BID Qty: 120 RF: 0 nitroglycerin 0.4 mg Tablet, Sublingual 0.4 mg sublingual Q5M PRN (Reason: Chest Pain) Qty: 20 RF: 0 lisinopril 2.5 mg Tablet 2.5 mg PO BID Qty: 60 RF: 0 metoprolol tartrate 25 mg Tablet 12.5 mg PO BID Qty: 60 RF: 0 amlodipine 5 mg Tablet 5 mg PO DAILY Qty: 30 RF: 0 Discharge Orders: Discharge Order (Routine); Ordered 07/10/20 Ordered By: Deion Ordonez Other Ambulatory Orders: ECG holter monitor 24 hour (Routine) Timeframe: 1 Day Facility: [facility] - Location: [facility] Ordered By: Deion Ordonez Referrals: Karina Quinn MD [Physician] - 07/24/20 10:45 am (2-3 weeks) Hollie De Jesus FNP [Referring] - 07/16/20 10:00 am (CAD, HTN) Discharge Diet: Cardiac Discharge Activity: Increase activity as tolerated Patient Instructions: Metoprolol (By mouth), Lisinopril (By mouth), Famotidine (By mouth), Aspirin (By mouth), Amlodipine (By mouth), Nitroglycerin, Rapid Release (By mouth), Atorvastatin (By mouth) Activity Restrictions/Additional Instructions: Please monitor your blood pressure 3 times daily, write down values to bring to your appointment. In case of persistent chest pain, any shortness of breath, lightheadedness, fainting or other unusual symptoms, please call [phone] immediately. Please discuss with your primary care doctor consideration for additional assessment of discomfort after swallowing, evaluation for possible esophageal dysmotility if symptoms persist. Discharge Attestations Time Spent in Discharge Care*: greater than 30 min Quality Metrics Clinical Quality Measures During this hospital stay, did patient experience: None Coding Level of Care Code Acute Business Services Intern for Chg Fwd Exam Comprehensive Diagnoses Chest pain I20.0 Chest pain type: chest pain due to myocardial ischemia Ischemic chest pain type: unstable angina pectoris Hypertension I10 DM type 2 (diabetes mellitus, type 2) E11.9 Hyperlipidemia E78.5 CVA (cerebral vascular accident) I63.9
== END 2020-07-10 16:43 | disposition home or self-care (01) ==
LOC: ER 22:39 → MEDSURG 07-10 00:27
PROVIDERS: Admitting Provider Internal Medicine; Emergency Provider Emergency Medicine; Visit Provider Internal Medicine
DX: I25.118 Atherosclerotic heart disease of native coronary artery with other forms of angina pectoris (principal); E11.9 Type 2 diabetes mellitus without complications; I10 Essential (primary) hypertension; E78.2 Mixed hyperlipidemia; Z86.73 Personal history of transient ischemic attack (TIA), and cerebral infarction without residual deficits; Z79.4 Long term (current) use of insulin; Z79.82 Long term (current) use of aspirin; Z82.49 Family history of ischemic heart disease and other diseases of the circulatory system
CPT/HCPCS: 12345; 36415; 36416; 71045; 78452; 80053; 80061; 81001; 82962; 83036; 83690; 83735; 83880; 84100; 84443; 84484; 85025; 85610; 85730; 87086; 93005; 93017; 93306; 93971; 96372; 99282; A9500; G0378; J1650; J1815; J2785